=== PATIENT | female | born 1995 ===

== ENCOUNTER 2020-04-06 23:54 | Inpatient (IN) | payer BC ==
[2020-04-07] MEDS ORDERED: Lidocaine 1% 50 ML MDV INJECT PRN (00:42)
[2020-04-07] MEDS ORDERED: Sodium Chloride 0.9% 10 ML Syringe FLUSH PRN (00:42)
[2020-04-07] MEDS ORDERED: Tranexamic Acid 1,000 MG in Sodium Chloride 0.9% 100 ML IV PRN (00:42)
[2020-04-07] MEDS ORDERED: Misoprostol 200 MCG Tab PO PRN (00:42)
[2020-04-07] MEDS ORDERED: Butorphanol 1 MG/ML SDV IVPUSH PRN (00:42)
[2020-04-07] MEDS ORDERED: Sodium Chloride 0.9% 2.5 ML Syringe FLUSH PRN (00:42)
[2020-04-07] MEDS ORDERED: Ondansetron 4 MG/2 ML SDV IVPUSH PRN (00:42)
[2020-04-07] MEDS ORDERED: Carboprost Tromethamine 250 MCG/1 ML Amp IM PRN (00:42)
[2020-04-07] MEDS ORDERED: Nalbuphine 10 MG/1 ML Vial IVPUSH PRN (00:42)
[2020-04-07] MEDS ORDERED: Sodium Chloride 0.9% 10 ML SDV IV PRN (00:42)
[2020-04-07] MEDS ORDERED: Methylergonovine 0.2 MG/1 ML Amp IM PRN (00:42)
[2020-04-07] MEDS ORDERED: Water For Irrigation,Sterile 1,000 ML Container IRR PRN (00:42)
[2020-04-07] MEDS ORDERED: Oxytocin/0.9 % Sodium Chloride 30 UNIT/500 ML BAG IV SCH (00:45)
[2020-04-07] MEDS ORDERED: Lactated Ringers 1,000 ML IV SCH (00:45)
[2020-04-07] MEDS ORDERED: Ampicillin 2 GM in Sodium Chloride 0.9% 100 ML IV ONE (01:00)
[2020-04-07] MEDS: Ampicillin 1 GM in Sodium Chloride 0.9% 50 ML IV SCH ×2 (05:28→09:44)
[2020-04-07] MEDS ORDERED: Misoprostol 25 MCG (1/4 of 100 MCG) Tab PO ONE (09:17)
[2020-04-07] MEDS ORDERED: Misoprostol 50 MCG (1/2 of 100 MCG) Tab VAG ONE (09:17)
[2020-04-07] MEDS ORDERED: hydrOXYzine Pamoate 25 MG Cap PO ONE (09:20)
[2020-04-07] MEDS ORDERED: Misoprostol 25 MCG (1/4 of 100 MCG) Tab ONE (09:36)
--- NOTE | 2020-04-07 09:40 | PCM.LDHP ---
L&D History of Present Illness - General Date of Service: 04/07/20 Admit Problem/Dx: Patient Status Order with Admit Dx/Problem 04/06/20 23:50 Patient Status [ADT] Routine 04/07/20 00:42 Patient Status [ADT] Routine Admission Diagnosis/Problem Admission Diagnosis/Problem 04/07/20 09: Noy is a 25 yo at 40.0 weeks gestation (DANIELLE 04/07/2020 that presents to L&D today with C/O LOF since 11:30 PM last night. B pos, RI, GBS pos with pencilliin GBS prophylaxis infusions begun x 2 doses thus far. SROM, clear fluid. FHR Cat I. Irregular contraction pattern/uterine irritability with min imal cervical change since last night; SVE 3/70/-3 at 5:15 this am. Patient reports pain 5/10 during contractions; denies vaginal bleeding; reports adequate movement. Patient has no other complaints or concerns at this time except fatigue as she did not sleep last night. 04/07/20 09:37 04/07/20 10:17 Source of Information: Patient History Limitations: Reports: No Limitations - Related Data Allergies/Adverse Reactions: Allergies Allergy/AdvReac Type Severity Reaction Status Date / Time No Known Allergies Allergy Verified 04/07/20 00:17 Home Medications: Home Meds Pnv No.95/Ferrous Fum/Folic AC [ Tablet] 1 tab PO DAILY 04/07/20 [History] Past Medical History HEENT History: Reports: Impaired Vision Cardiovascular History: Reports: None Respiratory History: Reports: Asthma Gastrointestinal History: Reports: Inflammatory Bowel Disease Genitourinary History: Reports: None 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: : 1 Para: 0 LMP (Approximate): Musculoskeletal History: Reports: None Neurological History: Reports: None Psychiatric History: Reports: Anxiety, Depression Oncologic (Cancer) History: Reports: None - Past Surgical History HEENT Surgical History: Reports: Oral Surgery Respiratory Surgical History: Reports: None GI Surgical History: Reports: None Musculoskeletal Surgical History: Reports: Other (See Below) Other Musculoskeletal Surgeries/Procedures:: broken right pinky Social & Family History - Family History Cardiac: Reports: CAD, [place] OBGYN: Reports: Musculoskeletal: Reports: Fibromyalgia Neurological: Reports: CVA, TIA Endocrine/Metabolic: Reports: Diabetes, type II Oncologic: Reports: Lung, Skin - Tobacco Use Smoking Status *Q: Never Smoker - Caffeine Use Caffeine Use: Reports: None - Recreational Drug Use Recreational Drug Use: No H&P Review of Systems - Review of Systems: Review Of Systems: Comprehensive ROS is negative, except as noted in HPI. General: Reports: No Symptoms HEENT: Reports: No Symptoms Pulmonary: Reports: No Symptoms Cardiovascular: Reports: No Symptoms Gastrointestinal: Reports: No Symptoms Genitourinary: Reports: No Symptoms Musculoskeletal: Reports: No Symptoms Skin: Reports: No Symptoms Psychiatric: Reports: No Symptoms Neurological: Reports: No Symptoms Hematologic/Lymphatic: Reports: No Symptoms Immunologic: Reports: No Symptoms L&D Exam - Exam Exam: Not Obtained - Vital Signs Vital Signs: T 98.4. HR 80, BP 118/72 (82). Weight: 220 lb - OB Specific Fundal Height In cm: 37 Contraction Duration (sec): 60-90 Contraction Frequency (min): 4-6 Contraction Intensity: Irritability Movement: Active Heart Tones: Present Heart Tones per Min: 130 Heart Rate (FHR) Variability: Moderate (6-25 bmp) Presentation: Vertex - Exam General: Alert, Oriented, Cooperative HEENT: Conjunctiva Clear, Hearing Intact, Mucosa Moist & [place], PERRLA Neck: Supple, Trachea Midline Lungs: Clear to Auscultation, Normal Respiratory Effort Cardiovascular: Regular Rate, Regular Rhythm GI/Abdominal Exam: Normal Bowel Sounds, Soft, Non-Tender, No Organomegaly, No Distention, No Abnormal Bruit, No Mass, Pelvis Stable Rectal Exam: Deferred Genitourinary: Normal external exam, Normal bimanual exam, Normal speculum exam Back Exam: Normal Inspection, Full Range of Motion Extremities: Normal Inspection, Normal Range of Motion, Non-Tender, No Pedal Edema, Normal Capillary Refill Skin: Warm, Dry, Intact Neurological: Cranial Nerves Intact, Reflexes Equal Bilateral Psychiatric: Alert, Normal Affect, Normal Mood - Patient Data Lab Results Last 24 hrs: Laboratory Results - last 24 hr 04/06/20 04/07/20 04/07/20 Range/Units 23:50 00:02 01:51 WBC (4.0-11.0) K/uL RBC (4.30-5.90) M/uL Hgb (12.0-16.0) g/dL Hct (36.0-46.0) % MCV (80.0-98.0) fL MCH (27.0-32.0) pg MCHC (31.0-37.0) g/dL RDW Std Deviation (28.0-62.0) fl RDW Coeff of [place] (11.0-15.0) % Plt Count (150-400) K/uL MPV (7.40-12.00) fL Nucleated RBC % /100WBC Nucleated RBCs # K/uL Urine Color YELLOW Urine Appearance SLT CLOUDY Urine pH 6.0 (5.0-8.0) Ur Specific [place] 1.025 (1.001-1.035) Urine Protein NEGATIVE (NEGATIVE) mg/dL Urine Glucose (UA) NEGATIVE (NEGATIVE) mg/dL Urine Ketones NEGATIVE (NEGATIVE) mg/dL Urine Occult Blood LARGE H (NEGATIVE) Urine Nitrite NEGATIVE (NEGATIVE) Urine Bilirubin NEGATIVE (NEGATIVE) Urine Urobilinogen 0.2 (<2.0) EU/dL Ur Leukocyte Esterase NEGATIVE (NEGATIVE) Membrane Rupture POSITIVE SARS-CoV-2 RNA (ROGER) NEGATIVE (NEGATIVE) Blood Type Antibody Screen 04/07/20 04/07/20 Range/Units 02:05 02:05 WBC 12.40 H (4.0-11.0) K/uL RBC 4.68 (4.30-5.90) M/uL Hgb 13.8 (12.0-16.0) g/dL Hct 41.9 (36.0-46.0) % MCV 89.5 (80.0-98.0) fL MCH 29.5 (27.0-32.0) pg MCHC 32.9 (31.0-37.0) g/dL RDW Std Deviation 45.8 (28.0-62.0) fl RDW Coeff of [place] 14 (11.0-15.0) % Plt Count 264 (150-400) K/uL MPV 10.70 (7.40-12.00) fL Nucleated RBC % 0.0 /100WBC Nucleated RBCs # 0 K/uL Urine Color Urine Appearance Urine pH (5.0-8.0) Ur Specific [place] (1.001-1.035) Urine Protein (NEGATIVE) mg/dL Urine Glucose (UA) (NEGATIVE) mg/dL Urine Ketones (NEGATIVE) mg/dL Urine Occult Blood (NEGATIVE) Urine Nitrite (NEGATIVE) Urine Bilirubin (NEGATIVE) Urine Urobilinogen (<2.0) EU/dL Ur Leukocyte Esterase (NEGATIVE) Membrane Rupture SARS-CoV-2 RNA (ROGER) (NEGATIVE) Blood Type B POSITIVE Antibody Screen NEGATIVE Result Diagrams: 04/07/20 02:05 - Problem List (1) Amniotic fluid leaking SNOMED Code(s): 962884012 ICD Code: O42.90 - TEVIN ROM, 7TH0 BETW RUPT & ONST LABR, UNSP WEEKS OF GEST Status: Acute Current Visit: Yes (2) 40 weeks gestation of SNOMED Code(s): 77389084 ICD Code: Z3A.40 - 40 WEEKS GESTATION OF Status: Acute Current Visit: Yes Problem List Initiated/Reviewed/Updated: Yes Orders Last 24hrs: Active Orders 24 hr Category Date Time Status Patient Status [ADT] Routine ADT 04/07/20 00:42 Active Heart Tones [RC] CONTINUOUS Care 04/07/20 00:42 Active Non Stress Test [RC] PER UNIT ROUTINE Care 04/07/20 00:17 Active May Shower [RC] ASDIRECTED Care 04/07/20 00:42 Active Notify Provider [RC] PRN Care 04/07/20 00:42 Active Up ad Yanci [RC] ASDIRECTED Care 04/07/20 00:17 Active Vaginal Exam [RC] Click to Edit Care 04/07/20 00:17 Active Vital Signs [RC] PER UNIT ROUTINE Care 04/07/20 00:17 Active RPR (SYPHILIS SERO) W/ RFLX [REF] Routine Lab 04/07/20 02:05 Received Ampicillin 1 gm Med 04/07/20 05:00 Active Sodium Chloride 0.9% [Normal Saline] 50 ml IV Q4H Butorphanol [Stadol] Med 04/07/20 00:42 Active 1 mg IVPUSH Q1H PRN Carboprost Tromethamine [Hemabate DS] Med 04/07/20 00:42 Active 250 mcg IM ASDIRECTED PRN Lactated Ringers [Ringers, Lactated] 1,000 ml Med 04/07/20 00:45 Active IV ASDIRECTED Lidocaine 1% [Xylocaine 1%] Med 04/07/20 00:42 Active 50 ml INJECT ONETIME PRN Methylergonovine [Methergine] Med 04/07/20 00:42 Active 0.2 mg IM ASDIRECTED PRN Nalbuphine [Nubain] Med 04/07/20 00:42 Active 10 mg IVPUSH Q1H PRN Ondansetron [Zofran] Med 04/07/20 00:42 Active 4 mg IVPUSH Q6H PRN Oxytocin/0.9 % Sodium Chloride [Oxytocin 30 Unit/500 ML Med 04/07/20 00:45 Active -NS] 30 unit in 500 ml IV TITRATE Sodium Chloride 0.9% [Normal Saline] Med 04/07/20 00:42 Active 10 ml IV ASDIRECTED PRN Sodium Chloride 0.9% [Saline Flush] Med 04/07/20 00:42 Active 10 ml FLUSH ASDIRECTED PRN Sodium Chloride 0.9% [Saline Flush] Med 04/07/20 00:42 Active 2.5 ml FLUSH ASDIRECTED PRN Tranexamic Acid [Cyklokapron] 1,000 mg Med 04/07/20 00:42 Active Sodium Chloride 0.9% [Normal Saline] 100 ml IV ONETIME Water For Irrigation,Sterile [Sterile Water for Med 04/07/20 00:42 Active Irrigation] 1,000 ml IRR ASDIRECTED PRN miSOPROStoL [Cytotec] Med 04/07/20 00:42 Active 200 mcg PO ONETIME PRN Scalp Electrode [WOMSER] Per Unit Routine Oth 04/07/20 00:42 Ordered Peripheral IV Insertion Adult [OM.PC] Routine Oth 04/07/20 00:42 Ordered Resuscitation Status Routine Resus Stat 04/07/20 00:17 Ordered Medication Orders Butorphanol Tartrate (Stadol) 1 mg IVPUSH Q1H PRN PRN Reason: Pain Carboprost Tromethamine (Hemabate Ds) 250 mcg IM ASDIRECTED PRN PRN Reason: Post Hemorrhage Lactated Ringer's (Ringers, Lactated) 1,000 mls @ 150 mls/hr IV ASDIRECTED ELDA Last Infusion: 04/07/20 05:28 Dose: 150 mls/hr Documented by: [email or web address] Infusion: 04/07/20 02:18 Dose: 0 mls/hr Documented by: [id number] Admin: 04/07/20 01:45 Dose: 150 mls/hr Documented by: [email or web address] Oxytocin/Sodium Chloride (Oxytocin 30 Unit/500 Ml-Ns) 30 unit in 500 mls @ 999 mls/hr IV TITRATE [facility] Tranexamic Acid 1,000 mg/ (Sodium Chloride) 110 mls @ 660 mls/hr IV ONETIME PRN PRN Reason: Bleeding Ampicillin Sodium 1 gm/ Sodium (Chloride) 50 mls @ 100 mls/hr IV Q4H [facility] Last Admin: 04/07/20 05:28 Dose: 100 mls/hr Documented by: [email or web address] Lidocaine HCl (Xylocaine 1%) 50 ml INJECT ONETIME PRN PRN Reason: Laceration repair Methylergonovine Maleate (Methergine) 0.2 mg IM ASDIRECTED PRN PRN Reason: Post Hemorrhage Misoprostol (Cytotec) 200 mcg PO ONETIME PRN PRN Reason: Post Hemorrhage Nalbuphine HCl (Nubain) 10 mg IVPUSH Q1H PRN PRN Reason: Pain (severe 7-10) Ondansetron HCl (Zofran) 4 mg IVPUSH Q6H PRN PRN Reason: Nausea/Vomiting Sodium Chloride (Saline Flush) 10 ml FLUSH ASDIRECTED PRN PRN Reason: Keep Vein Open Sodium Chloride (Saline Flush) 2.5 ml FLUSH ASDIRECTED PRN PRN Reason: Keep Vein Open Sodium Chloride (Normal Saline) 10 ml IV ASDIRECTED PRN PRN Reason: IV Use Sterile Water (Sterile Water For Irrigation) 1,000 ml IRR ASDIRECTED PRN PRN Reason: delivery Assessment/Plan Comment:: Admit to L&D for observation and expectant s/p SROM at home at 11:30 PM 04/06/2020. Administer cytotec per orders. May administer VISTARIL as needed for sleep. See new orders. Dr. Ma notieifed and agreeable with POC.
[2020-04-07] MEDS ORDERED: fentaNYL 100 MCG/2 ML SDV ONE (11:38)
[2020-04-07] MEDS ORDERED: Ropivacaine HCl/PF 100 ML ONE (11:38)
--- NOTE | 2020-04-07 12:05 | PCM.PREANE ---
Preanesthetic Assessment - Anesthesia/Transfusion/Family Hx Anesthesia History: Prior Anesthesia Without Reaction Family History of Anesthesia Reaction: No Transfusion History: No Prior Transfusion(s) - Physical Assessment NPO Status Date: 04/07/20 NPO Status Time: 07:00 Height: 1.63 m Weight: 99.79 kg ASA Class: 2 - Lab Values: Laboratory Last Values WBC 12.40 K/uL (4.0-11.0) H 04/07/20 02:05 RBC 4.68 M/uL (4.30-5.90) 04/07/20 02:05 Hgb 13.8 g/dL (12.0-16.0) 04/07/20 02:05 Hct 41.9 % (36.0-46.0) 04/07/20 02:05 MCV 89.5 fL (80.0-98.0) 04/07/20 02:05 MCH 29.5 pg (27.0-32.0) 04/07/20 02:05 MCHC 32.9 g/dL (31.0-37.0) 04/07/20 02:05 RDW Std Deviation 45.8 fl (28.0-62.0) 04/07/20 02:05 RDW Coeff of Kamryn 14 % (11.0-15.0) 04/07/20 02:05 Plt Count 264 K/uL (150-400) 04/07/20 02:05 MPV 10.70 fL (7.40-12.00) 04/07/20 02:05 Nucleated RBC % 0.0 /100WBC 04/07/20 02:05 Nucleated RBCs # 0 K/uL 04/07/20 02:05 Urine Color YELLOW 04/06/20 23:50 Urine Appearance SLT CLOUDY 04/06/20 23:50 Urine pH 6.0 (5.0-8.0) 04/06/20 23:50 Ur Specific [place] 1.025 (1.001-1.035) 04/06/20 23:50 Urine Protein NEGATIVE mg/dL (NEGATIVE) 04/06/20 23:50 Urine Glucose (UA) NEGATIVE mg/dL (NEGATIVE) 04/06/20 23:50 Urine Ketones NEGATIVE mg/dL (NEGATIVE) 04/06/20 23:50 Urine Occult Blood LARGE (NEGATIVE) H 04/06/20 23:50 Urine Nitrite NEGATIVE (NEGATIVE) 04/06/20 23:50 Urine Bilirubin NEGATIVE (NEGATIVE) 04/06/20 23:50 Urine Urobilinogen 0.2 EU/dL (<2.0) 04/06/20 23:50 Ur Leukocyte Esterase NEGATIVE (NEGATIVE) 04/06/20 23:50 Membrane Rupture POSITIVE 04/07/20 00:02 SARS-CoV-2 RNA (ROGER) NEGATIVE (NEGATIVE) 04/07/20 01:51 Blood Type B POSITIVE 04/07/20 02:05 Antibody Screen NEGATIVE 04/07/20 02:05 - Allergies Allergies/Adverse Reactions: Allergies Allergy/AdvReac Type Severity Reaction Status Date / Time No Known Allergies Allergy Verified 04/07/20 00:17 - Acknowledgements Anesthesia Type Planned: Epidural Pt an Appropriate Candidate for the Planned Anesthesia: Yes Alternatives and Risks of Anesthesia Discussed w Pt/Guardian: Yes Pt/Guardian Understands and Agrees with Anesthesia Plan: Yes PreAnesthesia Questionnaire HEENT History: Reports: Impaired Vision Cardiovascular History: Reports: None Respiratory History: Reports: Asthma Gastrointestinal History: Reports: Inflammatory Bowel Disease Genitourinary History: Reports: None 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: Musculoskeletal History: Reports: None Neurological History: Reports: None Psychiatric History: Reports: Anxiety, Depression Oncologic (Cancer) History: Reports: None - Past Surgical History HEENT Surgical History: Reports: Oral Surgery Respiratory Surgical History: Reports: None GI Surgical History: Reports: None Musculoskeletal Surgical History: Reports: Other (See Below) Other Musculoskeletal Surgeries/Procedures:: broken right pinky - SUBSTANCE USE Smoking Status *Q: Never Smoker Recreational Drug Use History: No - HOME MEDS Home Medications: Home Meds Pnv No.95/Ferrous Fum/Folic AC [ Tablet] 1 tab PO DAILY 04/07/20 [History] - CURRENT (IN HOUSE) MEDS Current Meds: Current Medications Butorphanol Tartrate (Stadol) 1 mg IVPUSH Q1H PRN PRN Reason: Pain Carboprost Tromethamine (Hemabate Ds) 250 mcg IM ASDIRECTED PRN PRN Reason: Post Hemorrhage Lactated Ringer's (Ringers, Lactated) 1,000 mls @ 150 mls/hr IV ASDIRECTED ELDA Last Infusion: 04/07/20 05:28 Dose: 150 mls/hr Documented by: Oxytocin/Sodium Chloride (Oxytocin 30 Unit/500 Ml-Ns) 30 unit in 500 mls @ 999 mls/hr IV TITRATE [facility] Tranexamic Acid 1,000 mg/ (Sodium Chloride) 110 mls @ 660 mls/hr IV ONETIME PRN PRN Reason: Bleeding Ampicillin Sodium 1 gm/ Sodium (Chloride) 50 mls @ 100 mls/hr IV Q4H [facility] Last Admin: 04/07/20 09:44 Dose: 100 mls/hr Documented by: Lidocaine HCl (Xylocaine 1%) 50 ml INJECT ONETIME PRN PRN Reason: Laceration repair Methylergonovine Maleate (Methergine) 0.2 mg IM ASDIRECTED PRN PRN Reason: Post Hemorrhage Misoprostol (Cytotec) 200 mcg PO ONETIME PRN PRN Reason: Post Hemorrhage Nalbuphine HCl (Nubain) 10 mg IVPUSH Q1H PRN PRN Reason: Pain (severe 7-10) Ondansetron HCl (Zofran) 4 mg IVPUSH Q6H PRN PRN Reason: Nausea/Vomiting Sodium Chloride (Saline Flush) 10 ml FLUSH ASDIRECTED PRN PRN Reason: Keep Vein Open Sodium Chloride (Saline Flush) 2.5 ml FLUSH ASDIRECTED PRN PRN Reason: Keep Vein Open Sodium Chloride (Normal Saline) 10 ml IV ASDIRECTED PRN PRN Reason: IV Use Sterile Water (Sterile Water For Irrigation) 1,000 ml IRR ASDIRECTED PRN PRN Reason: delivery Discontinued Medications Fentanyl (Sublimaze) Confirm Administered Dose 100 mcg .ROUTE .STK-MED ONE Stop: 04/07/20 11:39 Hydroxyzine Pamoate (Vistaril) 50 mg PO ONETIME ONE Stop: 04/07/20 09:21 Last Admin: 04/07/20 09:45 Dose: 50 mg Documented by: Ampicillin Sodium 2 gm/ Sodium (Chloride) 100 mls @ 200 mls/hr IV ONETIME ONE Stop: 04/07/20 01:29 Last Admin: 04/07/20 01:48 Dose: 200 mls/hr Documented by: Ropivacaine (Naropin 0.2%) Confirm Administered Dose 100 mls @ as directed .ROUTE .STK-MED ONE Stop: 04/07/20 11:39 Misoprostol (Cytotec) 25 mcg PO ONETIME ONE Stop: 04/07/20 09:18 Last Admin: 04/07/20 09:48 Dose: 25 mcg Documented by: Misoprostol (Cytotec) 25 mcg VAG ONETIME ONE Stop: 04/07/20 09:18 Last Admin: 04/07/20 09:47 Dose: 25 mcg Documented by: Misoprostol (Cytotec) Confirm Administered Dose 25 mcg .ROUTE .STK-MED ONE Stop: 04/07/20 09:37
--- NOTE | 2020-04-07 12:08 | PCM.PRNOTE ---
- Free Text/Narrative Note: Anes Note Patietn requests epidural for L&D. Sitting position, level L3-L4 midline appraoch. Sterile technique. Chloraprep scrub to lumbar area. Sterile fenestrated drape applied Epidural space easily achieved single attempt with ease using GENESIS technique. GENESIS at 3 cm. Cath threaded 5 cm with ease. Cath secured a t skin at 10 cm using sterile clear adhesive dressing. Test 1153 3 cc 1.5% lido with epi negative. 1155 Load 10 cc 0.2% ropivicaine with 1 mcg cc fentanyl in slow divided doses. 1200 Pump started with 90 cc same solution. Rate is 8 cc hr with 6 cc q 20 min prn bolus. Parris well. Time with patient [id number] Sherman Marks CRNA
[2020-04-07] MEDS ORDERED: oxyCODONE 5 MG Tab PO PRN (14:34)
[2020-04-07] MEDS ORDERED: Witch Hazel Medicated Pads 40/Jar TOP PRN (14:34)
[2020-04-07] MEDS ORDERED: Docusate Sodium 100 MG Cap PO PRN (14:34)
[2020-04-07] MEDS ORDERED: Lanolin 100% Cream 7 GM Tube TOP PRN (14:34)
[2020-04-07] MEDS ORDERED: Acetaminophen 500 MG Tab PO PRN (14:34)
[2020-04-07] MEDS ORDERED: Bisacodyl 10 MG Supp RECTAL PRN (14:34)
[2020-04-07] MEDS ORDERED: Benzocaine/Menthol 20%-0.5% Spray 78 GM Cannister TOP PRN (14:34)
[2020-04-07] MEDS ORDERED: Ibuprofen 400 MG Tab PO PRN (14:34)
--- NOTE | 2020-04-07 14:45 | PCM.DEL ---
L & D Note - General Info Date of Service: 04/07/20 Mother's Due Date: 04/07/20 - Delivery Note Labor: Spontaneous Cervical Ripening Method: Misoprostil Delivery Outcome: Livebirth Delivery Method: Spontaneous Vaginal Delivery-Single Infant Delivery Mode: Spontaneous Presentation: Vertex Nuchal Cord: None Anesthesia Type: Epidural Amniotic Fluid Description: Meconium Stained Episiotomy Type: None Laceration: 2nd Degree Suture type: Vicryl Suture size: 3-0 Placenta: Spontaneous, Meconium Stained Cord: 3 Vessels Estimated Blood Loss: 350 Resuscitation Needed: No : Stimulated, Warmed, [place] Used Score 1 min: 9 Score 5 min: 9 Second Stage Interventions: Reports: Encouragement Given, Pushing Effectively, Pushing, Feet in Foot Rests Delivery Comments (Free Text/Narrative):: Noy is a 25 yo at 40.0 weeks gestation S/P to viable vigorous NBF. Meconium stained fluid noted, Baby RN at bedside with Peds on the floor on standby for assistance. Dr. Ma notified. B pos, RI, GBS pos with adequate GBS prophylaxis in labor. NBF delivered RAMON without difficulty, placed to low maternal abdomen, warmed, dried, stimulated by RN. Umbilical cord left intact x 2 min, clamped x2, cut by FOB. Placenta delivered intact, 3VC, [place], meconium stained. 2nd degree perineal laceration repaired with 3.[address], approximated, hemostatic. Uterus firm, U-1. Small rubra lochia. EBL ~ 350. Mother resting comfortably in bed with BLE epidural analgesia, NBF attempted to latch to right breast. - General Info Date of Service: 04/07/20 Admission Dx/Problem (Free Text): Patient Status Order with Admit Dx/Problem 04/06/20 23:50 Patient Status [ADT] Routine 04/07/20 00:42 Patient Status [ADT] Routine Admission Diagnosis/Problem Admission Diagnosis/Problem 04/07/20 09: Noy is a 25 yo at 40.0 weeks gestation (DANIELLE 04/07/2020 that presents to L&D today with C/O LOF since 11:30 PM last night. B pos, RI, GBS pos with pencilliin GBS prophylaxis infusions begun x 2 doses thus far. SROM, clear fluid. FHR Cat I. Irregular contraction pattern/uterine irritability with minimal cervical change since last night; SVE 3/70/-3 at 5:15 this am. Patient reports pain 5/10 during contractions; denies vaginal bleeding; reports adequate movement. Patient has no other complaints or concerns at this time except fatigue as she did not sleep last night. 04/07/20 09:37 04/07/20 10:17 Functional Status: Reports: Pain Controlled - Review of Systems General: Reports: No Symptoms HEENT: Reports: No Symptoms Pulmonary: Reports: No Symptoms Cardiovascular: Reports: No Symptoms Gastrointestinal: Reports: No Symptoms Genitourinary: Reports: No Symptoms Musculoskeletal: Reports: No Symptoms Skin: Reports: No Symptoms Neurological: Reports: No Symptoms Psychiatric: Reports: No Symptoms - Patient Data Vitals - Most Recent: Hemodynamically stable, afebrile. Weight - Most Recent: 220 lb Lab Results Last 24 Hours: Laboratory Results - last 24 hr 04/06/20 04/07/20 04/07/20 Range/Units 23:50 00:02 01:51 WBC (4.0-11.0) K/uL RBC (4.30-5.90) M/uL Hgb (12.0-16.0) g/dL Hct (36.0-46.0) % MCV (80.0-98.0) fL MCH (27.0-32.0) pg MCHC (31.0-37.0) g/dL RDW Std Deviation (28.0-62.0) fl RDW Coeff of [place] (11.0-15.0) % Plt Count (150-400) K/uL MPV (7.40-12.00) fL Nucleated RBC % /100WBC Nucleated RBCs # K/uL Urine Color YELLOW Urine Appearance SLT CLOUDY Urine pH 6.0 (5.0-8.0) Ur Specific [place] 1.025 (1.001-1.035) Urine Protein NEGATIVE (NEGATIVE) mg/dL Urine Glucose (UA) NEGATIVE (NEGATIVE) mg/dL Urine Ketones NEGATIVE (NEGATIVE) mg/dL Urine Occult Blood LARGE H (NEGATIVE) Urine Nitrite NEGATIVE (NEGATIVE) Urine Bilirubin NEGATIVE (NEGATIVE) Urine Urobilinogen 0.2 (<2.0) EU/dL Ur Leukocyte Esterase NEGATIVE (NEGATIVE) Membrane Rupture POSITIVE SARS-CoV-2 RNA (ROGER) NEGATIVE (NEGATIVE) Blood Type Antibody Screen 04/07/20 04/07/20 Range/Units 02:05 02:05 WBC 12.40 H (4.0-11.0) K/uL RBC 4.68 (4.30-5.90) M/uL Hgb 13.8 (12.0-16.0) g/dL Hct 41.9 (36.0-46.0) % MCV 89.5 (80.0-98.0) fL MCH 29.5 (27.0-32.0) pg MCHC 32.9 (31.0-37.0) g/dL RDW Std Deviation 45.8 (28.0-62.0) fl RDW Coeff of [place] 14 (11.0-15.0) % Plt Count 264 (150-400) K/uL MPV 10.70 (7.40-12.00) fL Nucleated RBC % 0.0 /100WBC Nucleated RBCs # 0 K/uL Urine Color Urine Appearance Urine pH (5.0-8.0) Ur Specific [place] (1.001-1.035) Urine Protein (NEGATIVE) mg/dL Urine Glucose (UA) (NEGATIVE) mg/dL Urine Ketones (NEGATIVE) mg/dL Urine Occult Blood (NEGATIVE) Urine Nitrite (NEGATIVE) Urine Bilirubin (NEGATIVE) Urine Urobilinogen (<2.0) EU/dL Ur Leukocyte Esterase (NEGATIVE) Membrane Rupture SARS-CoV-2 RNA (ROGER) (NEGATIVE) Blood Type B POSITIVE Antibody Screen NEGATIVE Med Orders - Current: Current Medications Discontinued Medications Butorphanol Tartrate (Stadol) 1 mg IVPUSH Q1H PRN PRN Reason: Pain Carboprost Tromethamine (Hemabate Ds) 250 mcg IM ASDIRECTED PRN PRN Reason: Post Hemorrhage Fentanyl (Sublimaze) Confirm Administered Dose 100 mcg .ROUTE .STK-MED ONE Stop: 04/07/20 11:39 Hydroxyzine Pamoate (Vistaril) 50 mg PO ONETIME ONE Stop: 04/07/20 09:21 Last Admin: 04/07/20 09:45 Dose: 50 mg Documented by: Lactated Ringer's (Ringers, Lactated) 1,000 mls @ 150 mls/hr IV ASDIRECTED ELDA Last Infusion: 04/07/20 05:28 Dose: 150 mls/hr Documented by: Oxytocin/Sodium Chloride (Oxytocin 30 Unit/500 Ml-Ns) 30 unit in 500 mls @ 999 mls/hr IV TITRATE [facility] Tranexamic Acid 1,000 mg/ (Sodium Chloride) 110 mls @ 660 mls/hr IV ONETIME PRN PRN Reason: Bleeding Ampicillin Sodium 2 gm/ Sodium (Chloride) 100 mls @ 200 mls/hr IV ONETIME ONE Stop: 04/07/20 01:29 Last Admin: 04/07/20 01:48 Dose: 200 mls/hr Documented by: Ampicillin Sodium 1 gm/ Sodium (Chloride) 50 mls @ 100 mls/hr IV Q4H [facility] Last Admin: 04/07/20 09:44 Dose: 100 mls/hr Documented by: Ropivacaine (Naropin 0.2%) Confirm Administered Dose 100 mls @ as directed .ROUTE .STK-MED ONE Stop: 04/07/20 11:39 Lidocaine HCl (Xylocaine 1%) 50 ml INJECT ONETIME PRN PRN Reason: Laceration repair Methylergonovine Maleate (Methergine) 0.2 mg IM ASDIRECTED PRN PRN Reason: Post Hemorrhage Misoprostol (Cytotec) 200 mcg PO ONETIME PRN PRN Reason: Post Hemorrhage Misoprostol (Cytotec) 25 mcg PO ONETIME ONE Stop: 04/07/20 09:18 Last Admin: 04/07/20 09:48 Dose: 25 mcg Documented by: Misoprostol (Cytotec) 25 mcg VAG ONETIME ONE Stop: 04/07/20 09:18 Last Admin: 04/07/20 09:47 Dose: 25 mcg Documented by: Misoprostol (Cytotec) Confirm Administered Dose 25 mcg .ROUTE .STK-MED ONE Stop: 04/07/20 09:37 Nalbuphine HCl (Nubain) 10 mg IVPUSH Q1H PRN PRN Reason: Pain (severe 7-10) Ondansetron HCl (Zofran) 4 mg IVPUSH Q6H PRN PRN Reason: Nausea/Vomiting Sodium Chloride (Saline Flush) 10 ml FLUSH ASDIRECTED PRN PRN Reason: Keep Vein Open Sodium Chloride (Saline Flush) 2.5 ml FLUSH ASDIRECTED PRN PRN Reason: Keep Vein Open Sodium Chloride (Normal Saline) 10 ml IV ASDIRECTED PRN PRN Reason: IV Use Sterile Water (Sterile Water For Irrigation) 1,000 ml IRR ASDIRECTED PRN PRN Reason: delivery - Exam General: Alert, Oriented, Cooperative, No Acute Distress HEENT: Pupils Equal, Pupils Reactive, Mucous Membr. Moist/[place] Neck: Supple Lungs: Clear to Auscultation, Normal Respiratory Effort Cardiovascular: Regular Rate, Regular Rhythm GI/Abdominal Exam: Normal Bowel Sounds, Soft, Non-Tender, No Organomegaly, No Distention (Female) Exam: Normal External Exam, Enlarged Uterus ( uterus, U-1, firm.), Vaginal Bleeding (Small rubra lochia) Back Exam: Normal Inspection, Full Range of Motion Extremities: Normal Inspection, Normal Range of Motion, Non-Tender, No Pedal Edema, Normal Capillary Refill Skin: Warm, Dry, Intact Wound/Incisions: No Drainage (Approximated, hemostatic, edematous) Neurological: No New Focal Deficit (BLE epidural analgesiA) Psy/Mental Status: Alert, Normal Affect, Normal Mood - Problem List & Annotations (1) (normal spontaneous vaginal delivery) SNOMED Code(s): 22178973, 527673030 Code(s): O80 - ENCOUNTER FOR FULL-TERM UNCOMPLICATED DELIVERY Status: Acute Priority: High Current Visit: Yes (2) Lactating mother SNOMED Code(s): 682757486, 077017815 Code(s): Z39.1 - ENCOUNTER FOR CARE AND EXAMINATION OF LACTATING MOTHER Status: Acute Priority: High Current Visit: Yes - Problem List Review Problem List Initiated/Reviewed/Updated: Yes - My Orders Last 24 Hours: My Active Orders 04/07/20 Lunch Regular Diet [DIET] 04/07/20 14:34 Patient Status [ADT] Routine May Shower [RC] ASDIRECTED Up ad Yanci [RC] ASDIRECTED Vital Signs [RC] PER UNIT ROUTINE Acetaminophen [Tylenol Extra Strength] 1,000 mg PO Q4H PRN Acetaminophen [Tylenol Extra Strength] 500 mg PO Q4H PRN Benzocaine/Menthol [Dermoplast Pain Relief 20%-0.5% [place]] 78 gm TOP ASDIRECTED PRN Docusate Sodium [Colace] 100 mg PO BID PRN Ibuprofen [Motrin] 400 mg PO Q4H PRN Ibuprofen [Motrin] 800 mg PO Q6H PRN Lanolin [Lansinoh HPA] See Dose Instructions TOP ASDIRECTED PRN bisacodyL [Dulcolax] 10 mg RECTAL ONETIME PRN oxyCODONE 5 mg PO Q2H PRN witch Cintia [Tucks] 1 pad TOP ASDIRECTED PRN Assess Lochia [WOMSER] Per Unit Routine Assess Uterine Involution [WOMSER] Per Unit Routine Peripheral IV Discontinue [OM.PC] Routine Resuscitation Status Routine 04/07/20 14:35 Ice Therapy [OM.PC] Per Unit Routine Perineal Care [OM.PC] Per Unit Routine Sitz Bath [OM.PC] Per Unit Routine 04/07/20 14:36 Cooling Warming Measures [RC] ASDIRECTED - Plan Plan:: Admit to inpatient PP s/p to viable, term NBF. See new orders. Dr. Ma notified and agreeable with POC.
[2020-04-07] MEDS: Acetaminophen 500 MG Tab PO PRN (20:44)
[2020-04-08] MEDS: Acetaminophen 500 MG Tab PO PRN ×2 (01:57→07:55)
[2020-04-08] MEDS: Ibuprofen 800 MG Tab PO PRN ×2 (01:58→12:08)
--- NOTE | 2020-04-08 08:12 | PCM48HPAN ---
Post Anesthesia Note - EVALUATION WITHIN 48HRS OF ANESTHETIC Vital Signs in Normal Range: Yes Patient Participated in Evaluation: Yes Respiratory Function Stable: Yes Airway Patent: Yes Cardiovascular Function Stable: Yes Hydration Status Stable: Yes Pain Control Satisfactory: Yes (Pain 2/10 at rest, well-controlled per patient.) Nausea and Vomiting Control Satisfactory: Yes (Taking PO well, denies nausea.) Mental Status Recovered: Yes Vital Signs: Last Vital Signs Temp 36.4 C 04/08/20 04:13 Pulse 87 04/08/20 04:13 Resp 16 04/08/20 04:13 BP 116/63 04/08/20 04:13 Pulse Ox 96 04/08/20 04:13 - COMMENTS/OBSERVATIONS Free Text/Narrative:: Ambulating well, pt reports full return of strength and sensation to BLE.
--- NOTE | 2020-04-08 08:47 | PCM.DCSUM1 ---
Discharge Summary - Hospital Course Free Text/Narrative:: Discharge home with baby; follow up in the clinic in 6 weeks for routine visit; sooner, if needed. Diagnosis: Stroke: No Modified Felicity Scale: No Symptoms at All Modified Felicity Scale Score: 0 - Discharge Data Discharge Date: 04/08/20 Discharge Disposition: Home, Self-Care 01 Condition: Good - Referral to Home Health Primary Care Physician: PCP None - Patient Instructions Diet: Regular Diet as Tolerated, Drink 8-10+ Glasses/Day Activity: As Tolerated, No Strenuous Activities, Rest and Relax Today Driving: May Drive Today Showering/Bathing: November Shower Wound/Incision Care: Keep Operative Site/Wound Site Clean and Dry Notify Provider of: Fever, Increased Pain, Swelling and Redness, Drainage, Nausea and/or Vomiting - Discharge Plan *PRESCRIPTION DRUG MONITORING PROGRAM REVIEWED*: Not Applicable *COPY OF PRESCRIPTION DRUG MONITORING REPORT IN PATIENT GAGAN: Not Applicable Prescriptions/Med Rec: Ibuprofen [Motrin] 800 mg PO Q6H PRN #90 tablet PRN Reason: Pain Home Medications: Home Meds Pnv No.95/Ferrous Fum/Folic AC [ Tablet] 1 tab PO DAILY 04/07/20 [History] Ibuprofen [Motrin] 800 mg PO Q6H PRN #90 tablet 04/08/20 [Rx] Oxygen Therapy Mode: Room Air - Discharge Summary/Plan Comment DC Time >30 min.: Yes - General Info Date of Service: 04/08/20 Admission Dx/Problem (Free Text: Patient Status Order with Admit Dx/Problem 04/06/20 23:50 Patient Status [ADT] Routine 04/07/20 00:42 Patient Status [ADT] Routine Admission Diagnosis/Problem Admission Diagnosis/Problem 04/07/20 09: Noy is a 25 yo at 40.0 weeks gestation (DANIELLE 04/07/2020 that presents to L&D today with C/O LOF since 11:30 PM last night. B pos, RI, GBS pos with pencilliin GBS prophylaxis infusions begun x 2 doses thus far. SROM, clear fluid. FHR Cat I. Irregular contraction pattern/uterine irritability with minimal cervical change since last night; SVE 3/70/-3 at 5:15 this am. Patient reports pain 5/10 during contractions; denies vaginal bleeding; reports adequate movement. Patient has no other complaints or concerns at this time except fatigue as she did not sleep last night. 04/07/20 09:37 04/07/20 10:17 Functional Status: Reports: Pain Controlled, Tolerating Diet, Ambulating, Urinating - Review of Systems General: Reports: No Symptoms HEENT: Reports: No Symptoms Pulmonary: Reports: No Symptoms Cardiovascular: Reports: No Symptoms Gastrointestinal: Reports: No Symptoms Genitourinary: Reports: No Symptoms Musculoskeletal: Reports: No Symptoms Skin: Reports: No Symptoms Neurological: Reports: No Symptoms Psychiatric: Reports: No Symptoms - Patient Data Vitals - Most Recent: Last Vital Signs Temp 98.0 F 04/08/20 08:24 Pulse 77 04/08/20 08:24 Resp 15 04/08/20 08:24 BP 123/67 04/08/20 08:24 Pulse Ox 95 04/08/20 08:24 Weight - Most Recent: 220 lb Med Orders - Current: Current Medications Acetaminophen (Tylenol Extra Strength) 500 mg PO Q4H PRN PRN Reason: Pain Acetaminophen (Tylenol Extra Strength) 1,000 mg PO Q4H PRN PRN Reason: Pain Last Admin: 04/08/20 07:55 Dose: 1,000 mg Documented by: Benzocaine/Menthol (Dermoplast Pain Relief 20%-0.5% [place]) 78 gm TOP ASDIRECTED PRN PRN Reason: Perineal Comfort Measure Last Admin: 04/07/20 20:45 Dose: 1 can Documented by: Bisacodyl (Dulcolax) 10 mg RECTAL ONETIME PRN PRN Reason: Constipation Docusate Sodium (Colace) 100 mg PO BID PRN PRN Reason: Constipation Last Admin: 04/07/20 20:43 Dose: 100 mg Documented by: Emollient Ointment (Lansinoh Hpa) 0 gm TOP ASDIRECTED PRN PRN Reason: Sore Nipples Ibuprofen (Motrin) 400 mg PO Q4H PRN PRN Reason: Pain Ibuprofen (Motrin) 800 mg PO Q6H PRN PRN Reason: Pain Last Admin: 04/08/20 01:58 Dose: 800 mg Documented by: Oxycodone HCl (Oxycodone) 5 mg PO Q2H PRN PRN Reason: Pain Witch Vivienne (Tucks) 1 pad TOP ASDIRECTED PRN PRN Reason: comfort care Last Admin: 04/07/20 20:45 Dose: 1 tub Documented by: Discontinued Medications Butorphanol Tartrate (Stadol) 1 mg IVPUSH Q1H PRN PRN Reason: Pain Carboprost Tromethamine (Hemabate Ds) 250 mcg IM ASDIRECTED PRN PRN Reason: Post Hemorrhage Fentanyl (Sublimaze) Confirm Administered Dose 100 mcg .ROUTE .STK-MED ONE Stop: 04/07/20 11:39 Last Admin: 04/07/20 22:48 Dose: Not Given Documented by: Hydroxyzine Pamoate (Vistaril) 50 mg PO ONETIME ONE Stop: 04/07/20 09:21 Last Admin: 04/07/20 09:45 Dose: 50 mg Documented by: Lactated Ringer's (Ringers, Lactated) 1,000 mls @ 150 mls/hr IV ASDIRECTED [facility] Last Infusion: 04/07/20 05:28 Dose: 150 mls/hr Documented by: Oxytocin/Sodium Chloride (Oxytocin 30 Unit/500 Ml-Ns) 30 unit in 500 mls @ 999 mls/hr IV TITRATE [facility] Tranexamic Acid 1,000 mg/ (Sodium Chloride) 110 mls @ 660 mls/hr IV ONETIME PRN PRN Reason: Bleeding Ampicillin Sodium 2 gm/ Sodium (Chloride) 100 mls @ 200 mls/hr IV ONETIME ONE Stop: 04/07/20 01:29 Last Admin: 04/07/20 01:48 Dose: 200 mls/hr Documented by: Ampicillin Sodium 1 gm/ Sodium (Chloride) 50 mls @ 100 mls/hr IV Q4H [facility] [place] Last Admin: 04/07/20 09:44 Dose: 100 mls/hr Documented by: Ropivacaine (Naropin 0.2%) Confirm Administered Dose 100 mls @ as directed .ROUTE .STK-MED ONE Stop: 04/07/20 11:39 Last Admin: 04/07/20 22:49 Dose: Not Given Documented by: Lidocaine HCl (Xylocaine 1%) 50 ml INJECT ONETIME PRN PRN Reason: Laceration repair Methylergonovine Maleate (Methergine) 0.2 mg IM ASDIRECTED PRN PRN Reason: Post Hemorrhage Misoprostol (Cytotec) 200 mcg PO ONETIME PRN PRN Reason: Post Hemorrhage Misoprostol (Cytotec) 25 mcg PO ONETIME ONE Stop: 04/07/20 09:18 Last Admin: 04/07/20 09:48 Dose: 25 mcg Documented by: Misoprostol (Cytotec) 25 mcg VAG ONETIME ONE Stop: 04/07/20 09:18 Last Admin: 04/07/20 09:47 Dose: 25 mcg Documented by: Misoprostol (Cytotec) Confirm Administered Dose 25 mcg .ROUTE .STK-MED ONE Stop: 04/07/20 09:37 Last Admin: 04/07/20 22:49 Dose: Not Given Documented by: Nalbuphine HCl (Nubain) 10 mg IVPUSH Q1H PRN PRN Reason: Pain (severe 7-10) Ondansetron HCl (Zofran) 4 mg IVPUSH Q6H PRN PRN Reason: Nausea/Vomiting Sodium Chloride (Saline Flush) 10 ml FLUSH ASDIRECTED PRN PRN Reason: Keep Vein Open Sodium Chloride (Saline Flush) 2.5 ml FLUSH ASDIRECTED PRN PRN Reason: Keep Vein Open Sodium Chloride (Normal Saline) 10 ml IV ASDIRECTED PRN PRN Reason: IV Use Sterile Water (Sterile Water For Irrigation) 1,000 ml IRR ASDIRECTED PRN PRN Reason: delivery - Exam General: Reports: Alert, Oriented, Cooperative, No Acute Distress Lungs: Reports: Normal Respiratory Effort Cardiovascular: Reports: Regular Rate, Regular Rhythm GI/Abdominal Exam: Soft, Non-Tender (Female) Exam: Deferred Rectal (Female) Exam: Deferred Back Exam: Reports: Normal Inspection, Full Range of Motion Extremities: Normal Inspection, Normal Range of Motion, Non-Tender, Normal Capillary Refill Skin: Reports: Warm, Dry, Intact Wound/Incisions: Reports: Healing Well Neurological: Reports: No New Focal Deficit, Normal Speech, Normal Tone, Strength Equal Bilateral, Sensation Intact Psy/Mental Status: Reports: Alert, Normal Affect, Normal Mood
== END 2020-04-08 16:09 | disposition home or self-care (01) | DRG 560 ==
LOC: MW.OBCHECK 23:54 → MW.OB 23:54 → MW.OBCHECK 04-07 00:42 → MW.OB 04-07 00:42 → OBSVTOIN 04-07 14:34 → MW.OB 04-07 18:37
PROVIDERS: ADMIT Obstetrics & Gynecology; ATTEND Obstetrics & Gynecology
PROC: 10E0XZZ Delivery of Products of Conception, External Approach (ICD-10-PCS; principal; 2020-04-07)
PROC: 3E0P7VZ Introduction of Hormone into Female Reproductive, Via Natural or Artificial Opening (ICD-10-PCS; 2020-04-07)
PROC: 0KQM0ZZ Repair Perineum Muscle, Open Approach (ICD-10-PCS; 2020-04-07)
PROC: 3E0R3BZ Introduction of Anesthetic Agent into Spinal Canal, Percutaneous Approach (ICD-10-PCS; 2020-04-07)
PROC: 00HU33Z Insertion of Infusion Device into Spinal Canal, Percutaneous Approach (ICD-10-PCS; 2020-04-07)
DX: O99.824 Streptococcus B carrier state complicating childbirth (principal); Z3A.40 40 weeks gestation of pregnancy; Z37.0 Single live birth; O99.52 Diseases of the respiratory system complicating childbirth; J45.909 Unspecified asthma, uncomplicated; Z20.828 Contact with and (suspected) exposure to other viral communicable diseases; O42.90 Premature rupture of membranes, unspecified as to length of time between rupture and onset of labor, unspecified weeks of gestation; O77.0 Labor and delivery complicated by meconium in amniotic fluid; O70.1 Second degree perineal laceration during delivery
CPT/HCPCS: 01967; 36415; 51701; 59025; 59409; 81003; 84112; 85027; 86592; 86850; 86900; 86901; A9270-GY; J0290; J7050; J7120; U0002